=== PATIENT | female | born 1995 | race American Indian/Alaskan Native ===

== ENCOUNTER 2016-09-29 08:35 | Emergency (ER) | payer BC, OTHER ==
[2016-09-29 08:58] VITALS: BP 108/76
[2016-09-29 11:35] LABS: Bacteria,Urine 1+ /HPF (Negative); Bilirubin,Urine NEG (Negative); Blood,Urine NEG (Negative); Ketones,Urine 20 mg/dL (Negative); Leukocyte Esterase,Urine LG (Negative); Mucus,Urine 3+ /HPF; Nitrite,Urine NEG (Negative); Protein,Urine <15 mg/dL mg/dL (Negative); Urobilinogen,Urine < 2.0 mg/dL (<2.0)
[2016-09-29] MEDS ORDERED: ROCEPHIN IM STA (11:51)
[2016-09-29] MEDS ORDERED: ZITHROMAX PO ONE (11:51)
[2016-09-29] MEDS ORDERED: XYLOCAINE 1% MPF 5 mL INFILTRATI ONE (11:51)
--- NOTE | 2016-09-29 12:54 | Emergency Department Report ---
Entered by DHEERAJ LAO, acting as scribe for CELESTE ROJAS PA. ED Female HPI - General Chief complaint: Urogenital-Female Stated complaint: VAGINAL ITCH Time Seen by Provider: 09/29/16 10:47 Source: patient Mode of arrival: Ambulatory Limitations: No Limitations - History of Present Illness Initial comments: 20 year old female with no significant PMHx presents to ED c/o vaginal irritation and itching for 3 days. Patient states it feels itchy outside her vaginal area and notes she had similar symptoms last year for a yeast infection. Patient states she used OTC cream with mild relief. Patient denies dysuria, urgency, frequency, back pain, abd pain, chance of , nausea, vomiting, fever or chills. Patient states she is not concerned about STD exposure. MD Complaint: vaginal discharge, other (vaginal discharge) -: days(s) (3) Severity: moderate Severity scale (0 -10): 4 Quality: burning Consistency: constant Improves with: none Worsens with: none Are you Now?: No Associated Symptoms: denies other symptoms, vaginal discharge. denies: vaginal bleeding, abdominal pain, nausea/vomiting, fever/chills, headaches, dysuria, hematuria, rash, weakness - Related Data Sexually active: No Previous Rx's Medication Instructions Recorded Last Taken Type Nitrofurantoin C[place]/M-Cryst 100 mg PO Q12HR #14 capsule 09/29/16 Unknown Rx [Macrobid CAP] Allergies Allergy/AdvReac Type Severity Reaction Status Date / Time fire ant Allergy Swelling Verified 09/29/16 08:53 pollen extracts Allergy Swelling Verified 09/29/16 08:53 ED Review of Systems Comment: All other systems reviewed and negative Constitutional: denies: chills, fever ENT: denies: throat pain, congestion Respiratory: denies: cough, shortness of breath, wheezing Cardiovascular: denies: chest pain, palpitations Gastrointestinal: denies: abdominal pain, nausea, vomiting, diarrhea Genitourinary: denies: urgency, dysuria, frequency, discharge Musculoskeletal: denies: back pain, joint swelling, arthralgia, myalgia Skin: denies: rash, lesions Neurological: denies: headache, weakness, numbness, paresthesias, confusion, abnormal gait ED Past Medical Hx - Past Medical History Previous Medical History?: No - Surgical History Past Surgical History?: No - Family History Family history: no significant - Social History Smoking Status: Never Smoker Substance Use Type: None Other Social History: Single - Medications Home Medications: Home Medications Medication Instructions Recorded Confirmed Last Taken Type Nitrofurantoin [place]/M-Cryst 100 mg PO Q12HR #14 capsule 09/29/16 Unknown Rx [Macrobid CAP] ED Physical Exam - General Limitations: No Limitations General appearance: alert, in no apparent distress - Head Head exam: Present: atraumatic, normocephalic, normal inspection - Eye Eye exam: Present: normal appearance, PERRL, EOMI. Absent: conjunctival injection, periorbital swelling, periorbital tenderness Pupils: Present: normal accommodation - ENT ENT exam: Present: normal exam, normal orophraynx, mucous membranes dry, mucous membranes moist. Absent: TM's normal bilaterally, normal external ear exam - Neck Neck exam: Present: normal inspection, full ROM. Absent: tenderness, meningismus, lymphadenopathy - Respiratory Respiratory exam: Present: normal lung sounds bilaterally. Absent: respiratory distress, wheezes, rales, rhonchi, stridor - Cardiovascular Cardiovascular Exam: Present: regular rate, normal rhythm, normal heart sounds ( s1/s1 ). Absent: bradycardia, tachycardia, systolic murmur, diastolic murmur, rubs, gallop - GI/Abdominal GI/Abdominal exam: Present: soft, normal bowel sounds. Absent: distended, tenderness, guarding, rebound, rigid, diminished bowel sounds - External exam: Present: other (Discharge). Absent: normal external exam, erythema, swelling, lesions, lacerations, bleeding Speculum exam: Present: vaginal discharge (yellow ), cervical discharge (yellow , malodor), other. Absent: vaginal bleeding, tissue, laceration Bi-manual exam: Present: normal bi-manual exam. Absent: cervical motion tendernes, adnexal tenderness, adnexal mass, uterine enlargement, uterine tenderness - Expanded Exam Expanded Female exam: Absent: vaginal laceration, tissue present in vagina, herpetic lesions, vulvar erythema, vulvar tenderness, foreign body External exam: Present: normal Amniotic fluid: Present: none Speculum exam: Present: vaginal discharge. Absent: vaginal bleeding - Extremities Exam Extremities exam: Present: normal inspection, full ROM, normal capillary refill. Absent: tenderness, pedal edema, joint swelling, calf tenderness - Back Exam Back exam: Present: normal inspection, full ROM. Absent: tenderness, CVA tenderness (R), CVA tenderness (L), muscle spasm, paraspinal tenderness, vertebral tenderness, rash noted - Neurological Exam Neurological exam: Present: alert, oriented X3, normal gait, reflexes normal. Absent: motor sensory deficit - Psychiatric Psychiatric exam: Present: normal affect, normal mood - Skin Skin exam: Present: warm, dry, intact, normal color. Absent: rash ED Course Vital Signs 09/29/16 08:53 Temperature 98.5 F Pulse Rate 70 Respiratory 18 Rate Blood Pressure 108/76 O2 Sat by Pulse 100 Oximetry - Reevaluation(s) Reevaluation #1: 09/29/16 12:33 Patient received Rocephin 1 gram to cover Gonorrhea /UTI and zithromax 1 gram to cover Chlamydia. PT with Many Polymorhnuclear cell with CHL pending. yellow malodorous discharge. She chose tx instead of waitin for CHL test. ED Medical Decision Making - Lab Data Lab Results 09/29/16 Range/Units 11:05 Urine Color Yellow (Yellow) Urine Turbidity Clear (Clear) Urine pH 6.0 (5.0-7.0) Ur Specific [place] 1.025 (1.003-1.030) Urine Protein <15 mg/dl (Negative) mg/dL Urine Glucose (UA) Neg (Negative) mg/dL Urine Ketones 20 (Negative) mg/dL Urine Blood Neg (Negative) Urine Nitrite Neg (Negative) Ur Reducing Substances Not Reportable Urine Bilirubin Neg (Negative) Urine Ictotest Not Reportable Urine Urobilinogen < 2.0 (<2.0) mg/dL Ur Leukocyte Esterase Lg (Negative) Urine WBC (Auto) 13.0 H (0.0-6.0) /HPF Urine RBC (Auto) 7.0 (0.0-6.0) /HPF U Epithel Cells (Auto) 4.0 (0-13.0) /HPF Urine Bacteria (Auto) 1+ (Negative) /HPF Urine Mucus 3+ /HPF Urine HCG, Qual Negative (Negative) Urine Cx pending GC/CHL- pending Wet prep negative Trich, negative yeast , negative BV. Many Polymorpnuclear cells - Medical Decision Making ED Course- Patient here c/o of vaginal irritation. Pelvic exam, UA/CX, done. Patient with UTI, Wet prep negative except many polymorpnuclear cells. Gonorrhea and Chlamydia pending. After discussion with patient regarding labs and culture with malodorous discharge she chose treatment for Gonorrhea and Chlamydia. She was Given Rocephin 1 gram IM to cover UTI and Gonorrhea and Azithromax 1 gram po for Chlamydia. Patient had no adverse reaction from meds. patient voiced understanding of diagnosis and TX plans. I told her to refrain from sex for 2 weeks and follow up with Health department in 10 days for recheck. Patient will be place on ABX for UTI DX/Labs: Ua with positive leuks, bacteria and wbc . Wet prep neg except positive PNC , CHL pending. Urine CX pending. Bimanual negative exam. HCG negative Assessment/Plan 1. UTI 2. Vaginal discharge, abnormal with CX positive for many PNC Please follow up with health department macrobid for UTI Safe sex education ED Disposition Clinical Impression: Acute cystitis without hematuria, Foul smelling vaginal discharge Disposition: TO HOME OR SELFCARE Is pt being admited?: No Does the pt Need Aspirin: No Condition: Stable Instructions: Safe Sex (ED), Urinary Tract Infection in Women (ED), Sexually Transmitted Diseases (ED) Additional Instructions: Practice safe sex Go to [facility] in 7-10 days for recheck take antibiotic for urine infection increase fluid intake Prescriptions: Nitrofurantoin [place]/M-Cryst [Macrobid CAP] 100 mg PO Q12HR #14 capsule Referrals: PRIMARY CARE, [Primary Care Provider] - 3-5 Days [facility] [Outside] - 3-5 Days [facility] [Outside] - 7-10 days Forms: Work/School Release Form(ED) This documentation as recorded by the SHILO alford PEARL,accurately reflects the service I personally performed and the decisions made by me,CELESTE ROJAS PA.
== END 2016-09-29 12:58 | disposition home or self-care (01) ==
LOC: ED 08:35
DX: N30.00 Acute cystitis without hematuria (principal); Z91.048 Other nonmedicinal substance allergy status; Z91.09 Other allergy status, other than to drugs and biological substances
CPT/HCPCS: 81001; 81025; 87210; 87591; 96372; 99284; J0696

== ENCOUNTER 2017-11-19 18:55 | Emergency (ER) | payer SELFPAY ==
[2017-11-19 19:22] VITALS: BP 103/69
--- NOTE | 2017-11-19 20:12 | Emergency Department Report ---
HPI - General Chief Complaint: Urogenital-Female Time Seen by Provider: 11/19/17 20:07 - HPI HPI: The patient is a 22-year-old -[place] female who presents to the the clinic complaining of vaginal itching that began yesterday after her menstrual cycle ended while at rest. Symptoms have been constant since onset and pt rates them as severe in severity. Patient reports the symptoms are located perineum and describes the quality as itching. Symptoms associated with dysuria but denies any fever, flank pain, vaginal discharge. Symptoms are improved with nothing and exacerbated by movement. Patient reports history of similar symptoms. Pertinent medical history includes none ED Past Medical Hx - Past Medical History Previous Medical History?: No Hx Hypertension: No Hx CVA: No - Surgical History Past Surgical History?: No - Family History Family history: hypertension - Social History Smoking Status: Current Every Day Smoker Substance Use Type: Marijuana - Medications Home Medications: Home Medications Medication Instructions Recorded Confirmed Last Taken Type Nitrofurantoin [place]/M-Cryst 100 mg PO Q12HR #14 capsule 09/29/16 Unknown Rx [Macrobid CAP] ED Review of Systems ROS: Stated complaint: VAGINAL IRRITATED Other details as noted in HPI Comment: All other systems reviewed and negative Cardiovascular: denies: chest pain, palpitations Endocrine: denies: excessive sweating, flushing Genitourinary: dysuria, other (vaginal itching) Physical Exam - Physical Exam Vital Signs: Vital Signs 11/19/17 19:21 Temperature 98.4 F Pulse Rate 84 Respiratory 16 Rate Blood Pressure 103/69 O2 Sat by Pulse 100 Oximetry Physical Exam: - Physical Exam Physical Exam: - General Limitations: No Limitations General appearance: alert, in no apparent distress. - Head Head exam: Present: atraumatic, normocephalic - Eye Eye exam: Present: normal appearance - ENT ENT exam: Present: mucous membranes moist - Neck Neck exam: Present: normal inspection - Respiratory Respiratory exam: Present: normal lung sounds bilaterally. Absent: respiratory distress - Cardiovascular Cardiovascular Exam: Present: normal rhythm. Absent: systolic murmur, diastolic murmur, rubs, gallop - GI/Abdominal GI/Abdominal exam: Present: soft, normal bowel sounds the patient refused - Extremities Exam Extremities exam: Present: normal inspection - Back Exam Back exam: Present: normal inspection - Neurological Exam Neurological exam: Present: alert, oriented X3 - Psychiatric Psychiatric exam: normal affect and mood - Skin Skin exam: Present: warm, dry, intact, normal color. Absent: rash ED Course Vital Signs 11/19/17 19:21 Temperature 98.4 F Pulse Rate 84 Respiratory 16 Rate Blood Pressure 103/69 O2 Sat by Pulse 100 Oximetry Critical care attestation.: If time is entered above; I have spent that time in minutes in the direct care of this critically ill patient, excluding procedure time. ED Disposition Clinical Impression: Vaginitis Qualifiers: Chronicity: acute Qualified Code(s): N76.0 - Acute vaginitis Disposition: DC-01 TO HOME OR SELFCARE Is pt being admited?: No Does the pt Need Aspirin: No Condition: Stable Instructions: Vaginitis (ED) Forms: Work/School Release Form(ED)
[2017-11-19 20:13] LABS: Bacteria,Urine 1+ /HPF (Negative); Bilirubin,Urine NEG (Negative); Blood,Urine SM (Negative); Color,Urine Yellow (Yellow); Mucus,Urine 1+ /HPF
[2017-11-19 20:14] LABS: HCG Qualitative,Urine Negative (Negative)
== END 2017-11-19 20:56 | disposition home or self-care (01) ==
LOC: ED 18:55
DX: N76.0 Acute vaginitis (principal); F17.200 Nicotine dependence, unspecified, uncomplicated; F12.10 Cannabis abuse, uncomplicated; Z91.038 Other insect allergy status; Z91.048 Other nonmedicinal substance allergy status
CPT/HCPCS: 81001; 81025; 99283

== ENCOUNTER 2017-12-03 20:22 | Emergency (ER) | payer OTHER ==
[2017-12-03] MEDS ORDERED: MOTRIN PO ONE (22:03)
[2017-12-03 23:46] LABS: HCG Qualitative,Urine Negative (Negative)
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
--- NOTE | 2017-12-04 00:45 | XRay Report ---
FINAL REPORT EXAM: XR SPINE LUMBOSACRAL 2-3V HISTORY: lower back pain TECHNIQUE: 3 views of the lumbar spine PRIORS: None. FINDINGS: The lumbar vertebral bodies are normal in height. Vertebral alignment is normal. The disc spaces appear well-preserved. The soft tissues are unremarkable. IMPRESSION: Normal L-spine series.
[2017-12-04 00:58] VITALS: BP 118/65
== END 2017-12-04 00:57 | disposition home or self-care (01) ==
LOC: ED 20:22
DX: S39.012A Strain of muscle, fascia and tendon of lower back, initial encounter (principal); F12.90 Cannabis use, unspecified, uncomplicated; Z91.048 Other nonmedicinal substance allergy status; V89.2XXA Person injured in unspecified motor-vehicle accident, traffic, initial encounter; Y93.89 Activity, other specified; Y92.488 Other paved roadways as the place of occurrence of the external cause; Y99.8 Other external cause status
CPT/HCPCS: 72100; 81025; 99284